=== PATIENT | male | born 1955 | race Caucasian/White ===

== ENCOUNTER 2018-10-09 07:38 | Outpatient (CLI) | payer BC ==
--- NOTE | 2018-10-09 08:58 | MRI ---
MRI Lumbar Spine WO Con History: M [age] lumbar radiculopathy Comparison: None. Findings: The aortic contour is nonaneurysmal. No retroperitoneal periaortic adenopathy. Lumbar spine musculature is normal. Conus medullaris terminates near the inferior endplate of L1. Levels are as follows: L1/L2: Severe facet arthropathy. Circumferential disc osteophyte complex. Mild bilateral neural hernando inal narrowing. Abnormal increased posterior vertebral fat. Spinal canal measures 8 mm. L2/L3: Moderate to severe facet arthropathy. Circumferential disc osteophyte complex. Abnormal increa sed posterior epidural fat. Spinal canal measures 5 mm. Mild bilateral neural foraminal narrowing. L3/L4: Mild degenerative disc space height loss. Circumferential disc osteophyte complex with central annular fissure. Moderate facet arthropathy. Moderate bilateral neural foraminal narrowing with abutment of the left exiting nerve root. Abnormal increased posterior epidural fat. Spinal canal lavinia ures 7 mm. L4/L5: Disc desiccation. Broad-based posterior disc osteophyte complex. Moderate to severe facet arth rosis. Moderate bilateral neural foraminal narrowing. Spinal canal measures 7 mm. L5/S1: Severe facet arthropathy with hypertrophic osteophytes. Moderate disc desiccation with broad-b ased posterior disc osteophyte complex. Large effusion within the left facet joint. Moderate left and mild right neural foraminal narrowing. Impression: Multilevel mild/moderate spondylosis as described with neural foraminal and spinal canal narrowing.
== END 2018-10-09 07:39 | disposition home or self-care (01) ==
LOC: TBSIIMAG 07:38
PROVIDERS: ATTEND Neurological Surgery
DX: M47.26 Other spondylosis with radiculopathy, lumbar region (principal); M48.061 Spinal stenosis, lumbar region without neurogenic claudication; M48.07 Spinal stenosis, lumbosacral region
CPT/HCPCS: 72148

== ENCOUNTER 2018-12-30 07:35 | Outpatient (CLI) | payer BC ==
[2018-12-30 14:12] LABS: Hemoglobin 14.5 g/dL (14.0-18.0); Mean Corpuscular Hemoglobin 30.8 pg (27.0-31.0); Mean Corpuscular Volume 93.2 fL (78.0-98.0); Mean Platelet Volume 7.9 fL (7.4-10.4); Platelet Count 222 thou/uL (130-400); RBC Distribution Width 13.8 % (11.5-14.5)
[2018-12-30 14:34] LABS: Anion Gap 10 mmol/L (10-20); BUN (Urea Nitrogen) 9 mg/dL (8.4-25.7); Calc. Creatinine Clearance 0 mL/min (70-130); Carbon Dioxide 27 mmol/L (23-31); Chloride 105 mmol/L (98-107); Estimated GFR-MDRD 51; Glucose 81 mg/dL (80-115); Potassium 3.8 mmol/L (3.5-5.1); Sodium 138 mmol/L (136-145)
== END 2018-12-30 07:36 | disposition home or self-care (01) ==
LOC: LABBT 07:35
PROVIDERS: ATTEND Neurological Surgery
DX: Z01.818 Encounter for other preprocedural examination (principal); M43.16 Spondylolisthesis, lumbar region
CPT/HCPCS: 80048; 85027; 93005; 93010

== ENCOUNTER 2019-01-04 07:00 | Day surgery (SDC) | payer BC ==
[2018-12-30 13:01] VITALS: BMI 27.8
[2019-01-04] MEDS ORDERED: Clindamycin/D5W 900 mg/50 ml Premix Bag ONE (08:02)
[2019-01-04] MEDS ORDERED: Levofloxacin 500 mg/D5W 100 ml Premix Bag ONE (08:02)
[2019-01-04] MEDS ORDERED: Sodium Chloride 0.9% 10 ML ONE (08:46)
[2019-01-04] MEDS ORDERED: Fentanyl 100 MCG/2 ML VIAL ONE ×2 (08:51→10:36)
[2019-01-04] MEDS ORDERED: Midazolam HCl 2 mg/2 ml Vial ONE (08:51)
[2019-01-04] MEDS ORDERED: HYDROmorphone 0.5 MG/0.5 ML SYRINGE ONE ×2 (10:54→11:18)
[2019-01-04] MEDS ORDERED: Morphine 2 MG/ML SYRINGE ONE ×2 (11:48→12:02)
[2019-01-04] MEDS ORDERED: Tamsulosin HCl 0.4 MG CAP ONE (11:57)
[2019-01-04] MEDS ORDERED: Acetaminophen/Codeine 30-300mg Tablet ONE (12:43)
--- NOTE | 2019-01-04 14:37 | OP ---
DATE OF PROCEDURE: 01/04/2019 MINE WIRER: Jasmyne Luciano PA-C PROCEDURES PERFORMED: Left L5-S1 laminectomy, facetectomy, and foraminotomy, interbody arthrodesis, posterolateral arthrodesis, pedicle screw instrumentation, demineralized bone matrix, local morselized autograft. DESCRIPTION OF PROCEDURE: The patient was brought to the operating room and intubated. He was rolled in a prone position on gel-filled chest rolls. An incision was made exposing L5-S1 bilaterally and the level was confirmed by x-ray. We performed left L5-S1 laminectomy, facetectomy, foraminotomy, and diskectomy, completely decompressed the left L5 nerve root. The disk was incised and debrided, but I did not attempt to place an intervertebral device given the small size of the disk space. Pedicle screws were then placed at left L5 and left S1 using lateral fluoroscopic guidance. The winifred was secured between the screws. Distraction was applied and the winifred was tightened to the screws using nuts. The wound was then extensively irrigated and MAC hemostasis was secured. A combination of demineralized bone matrix and local morselized autograft was laid over the right lamina and posterolateral surfaces for the purpose of arthrodesis. Vancomycin powder was applied and the wound was then closed in anatomic layers. Job ID: [id number]
== END 2019-01-04 14:00 | disposition home or self-care (01) ==
LOC: SDC 07:00
PROVIDERS: ATTEND Neurological Surgery
PROC: 01NB0ZZ Release Lumbar Nerve, Open Approach (ICD-10-PCS; principal; 2019-01-04)
PROC: 0SG00AJ Fusion of Lumbar Vertebral Joint with Interbody Fusion Device, Posterior Approach, Anterior Column, Open Approach (ICD-10-PCS; principal; 2019-01-04)
PROC: 0SG0071 Fusion of Lumbar Vertebral Joint with Autologous Tissue Substitute, Posterior Approach, Posterior Column, Open Approach (ICD-10-PCS; principal; 2019-01-04)
DX: M48.061 Spinal stenosis, lumbar region without neurogenic claudication (principal); M43.16 Spondylolisthesis, lumbar region; M54.16 Radiculopathy, lumbar region; I12.9 Hypertensive chronic kidney disease with stage 1 through stage 4 chronic kidney disease, or unspecified chronic kidney disease; N18.9 Chronic kidney disease, unspecified; E78.5 Hyperlipidemia, unspecified; J45.909 Unspecified asthma, uncomplicated; Z88.0 Allergy status to penicillin; Z88.1 Allergy status to other antibiotic agents; Z88.5 Allergy status to narcotic agent; Z91.048 Other nonmedicinal substance allergy status
CPT/HCPCS: 76000; C1713; C1768; J1170; J1956; J2250; J2270; J3010; J3370; J3490

== ENCOUNTER 2019-01-20 15:15 | Outpatient (CLI) | payer BC ==
--- NOTE | 2019-01-20 15:54 | RAD ---
LUMBAR SPINE SERIES TWO VIEWS: 01/20/19 HISTORY: Follow-up surgery. There is a moderate scoliotic change convexed to the left. The vertebral bodies are normal in height. Degenerative osteophytes and some disc narrowing are noted at the L2-3 and L3-4 level. Left unilater al pedicle screws at L5-S1 are present. Surgical harpreet are seen over the neck. There is disc narrow ing at L5-S1. IMPRESSION: Arthritic change with scoliosis and postop changes of the spine. POS: [facility]
== END 2019-01-20 15:16 | disposition home or self-care (01) ==
LOC: TBSIIMAG 15:15
PROVIDERS: ATTEND Neurological Surgery
DX: M43.16 Spondylolisthesis, lumbar region (principal); M41.9 Scoliosis, unspecified; M46.96 Unspecified inflammatory spondylopathy, lumbar region; Z98.890 Other specified postprocedural states
CPT/HCPCS: 72100

== ENCOUNTER 2019-02-24 15:11 | Outpatient (CLI) | payer BC ==
--- NOTE | 2019-02-24 15:34 | RAD ---
2 views of the lumbar spine: 02/24/2019 COMPARISON: 01/20/2019 HISTORY: Spondylolisthesis, prior surgery FINDINGS: Cutaneous harpreet noted on the prior examination have been removed. Stable left-sided pedic le screw at L5 and S1 with a vertically oriented interlocking winifred. Stable multilevel lower lumbar spine facet hypertrophy, left greater than right. Stable scoliosis present, apex to the left, centered at the upper lumbar region. No anterolisthesis or retrolisthesis is noted. At L2-3 and L3-4 there is mild disc space narrowing with anterior osteophyte formation. No acute osse ous abnormality noted. IMPRESSION: Stable postoperative and degenerative changes within the lumbar spine as described above.
== END 2019-02-24 15:12 | disposition home or self-care (01) ==
LOC: TBSIIMAG 15:11
PROVIDERS: ATTEND Neurological Surgery
DX: M43.16 Spondylolisthesis, lumbar region (principal); M47.816 Spondylosis without myelopathy or radiculopathy, lumbar region; Z98.890 Other specified postprocedural states
CPT/HCPCS: 72100

== ENCOUNTER 2019-06-01 13:54 | Outpatient (CLI) | payer BC ==
--- NOTE | 2019-06-01 14:59 | RAD ---
TWO VIEWS LUMBAR SPINE: HISTORY: Lumbar spondylolisthesis. Low back pain, extending down the left leg. Previous fusion at L5-S1. COMPARISON: 02/24/2019. FINDINGS: Stable leftward curvature of the lumbar spine. Stable unilateral left-sided transpedicular screw at L5 and S1. No perihardware lucency. Redemonstration of grade I anterolisthesis of L5 upon S1. Curr ently, there is 5.4 mm of anterolisthesis. Previously, there was 5.3 mm of anterolisthesis. Lumbar spine vertebral body heights are maintained and there is no fracture. Visualized sacrum and bony pelvis are intact. IMPRESSION: 1. Stable lumbar fusion. 2. Essentially stable grade I anterolisthesis of L5 upon S1. POS: [facility]
== END 2019-06-01 13:55 | disposition home or self-care (01) ==
LOC: TBSIIMAG 13:54
PROVIDERS: ATTEND Neurological Surgery
DX: M43.16 Spondylolisthesis, lumbar region (principal); M43.17 Spondylolisthesis, lumbosacral region; Z98.1 Arthrodesis status
CPT/HCPCS: 72100

== ENCOUNTER 2019-09-21 06:13 | Outpatient (CLI) | payer BC, OTHER ==
[2019-09-21 11:27] LABS: Mean Corpuscular HGB CONC 32.1 g/dL (32.0-36.0); Mean Corpuscular Hemoglobin 30.3 pg (27.0-31.0); Mean Corpuscular Volume 94.3 fL (78.0-98.0); Mean Platelet Volume 8.4 fL (7.4-10.4); Platelet Count 250 thou/uL (130-400); RBC Distribution Width 13.5 % (11.5-14.5); Red Blood Cell (RBC) Count 4.96 mill/uL (4.70-6.10); White Blood Cell (WBC) Count 7.3 thou/uL (4.8-10.8)
[2019-09-21 11:49] LABS: INR-International Normal Ratio 0.9; Prothrombin Time 11.6 sec (12.0-14.7)
--- NOTE | 2019-09-21 12:00 | RAD ---
CHEST 2 VIEWS: HISTORY: Preoperative evaluation. COMPARISON: 09/02/2017. FINDINGS: Heart size is within normal limits. The lungs are clear. No confluent pneumonia, overt edema, or pl eural effusion. Stable-appearing posttraumatic changes in the left distal clavicle. IMPRESSION: No acute intrathoracic disease. POS: [facility]
[2019-09-21 12:03] LABS: Bacteria/HPF None Seen HPF (None Seen); Bilirubin Negative (Negative); Blood, Urine Negative (Negative); Clarity Clear (Clear); Glucose, Urine (Dipstick) Normal (Negative); Leukocyte Negative Leu/uL (Negative); Nitrite Negative (Negative); Protein, Urine (Dipstick) Negative (Neg-Trace); RBC/HPF 0-3 HPF (0-3); Squamous Epithelial 0-3 HPF (0-3); Urobilinogen Normal mg/dL (Less than 2); WBC/HPF 0-3 HPF (0-3)
[2019-09-21 12:47] LABS: Anion Gap 14 mmol/L (10-20); BUN (Urea Nitrogen) 11 mg/dL (8.4-25.7); Calc. Creatinine Clearance 0 mL/min (70-130); Calcium 9.2 mg/dL (7.8-10.44); Carbon Dioxide 27 mmol/L (23-31); Chloride 106 mmol/L (98-107); Estimated GFR-MDRD 52; Glucose 87 mg/dL (80-115); Potassium 3.9 mmol/L (3.5-5.1); Sodium 143 mmol/L (136-145)
[2019-09-22 18:03] LABS: SARS-CoV-2 MS2 Positive; SARS-CoV-2 N Gene Negative; SARS-CoV-2 S Gene Negative; SARS-CoV-2 orf1ab Negative
== END 2019-09-21 06:14 | disposition home or self-care (01) ==
LOC: LABBT 06:13
PROVIDERS: ATTEND Urology
DX: Z01.818 Encounter for other preprocedural examination (principal); Z11.59 Encounter for screening for other viral diseases; N40.1 Benign prostatic hyperplasia with lower urinary tract symptoms; N52.8 Other male erectile dysfunction; R30.0 Dysuria; I25.10 Atherosclerotic heart disease of native coronary artery without angina pectoris; N18.3 Chronic kidney disease, stage 3 (moderate)
CPT/HCPCS: 71046; 80048; 81001; 85027; 85610; 85730; 87086; 87635; U0003

== ENCOUNTER 2019-09-24 06:25 | Day surgery (SDC) | payer BC ==
[2019-09-20 11:44] VITALS: BMI 27.0
[2019-09-24] MEDS ORDERED: Levofloxacin 500 mg/D5W 100 ml Premix Bag ONE (07:01)
[2019-09-24] MEDS ORDERED: Famotidine/PF 20 mg/2ml Vial ONE (07:32)
[2019-09-24] MEDS ORDERED: Midazolam HCl 2 mg/2 ml Vial ONE (07:32)
[2019-09-24] MEDS ORDERED: Fentanyl 100 MCG/2 ML VIAL ONE (07:32)
[2019-09-24] MEDS ORDERED: Ondansetron PF 4 MG/2 ML Vial ONE ×2 (09:09→09:51)
[2019-09-24] MEDS ORDERED: Lidocaine 1% PF 5 ML VIAL ONE (09:51)
[2019-09-24] MEDS ORDERED: B & O ONE (10:03)
[2019-09-24] MEDS ORDERED: Oxybutynin 5 MG TAB ONE (10:31)
[2019-09-24] MEDS ORDERED: Phenazopyridine HCl 97.5 MG TABLET ONE (10:31)
[2019-09-24] MEDS ORDERED: Morphine 2 MG/ML SYRINGE ONE (12:21)
--- NOTE | 2019-09-24 13:53 | OP ---
DATE OF PROCEDURE: 09/24/2019 SERVICE: Urology. PREOPERATIVE DIAGNOSIS: Benign prostatic hyperplasia with urinary obstruction. POSTOPERATIVE DIAGNOSIS: Benign prostatic hyperplasia with urinary obstruction. PROCEDURE PERFORMED: UroLift with 6 implants. INDICATIONS FOR PROCEDURE: Mr. Looney is a 64-year-old white male with BPH and urinary obstruction. He is currently not completely managed on Flomax. He was suitable for UroLift on workup, and after discussion of risks and benefits, he wished to proceed forward. DESCRIPTION OF PROCEDURE: After identification of armband and verification of consent, the patient was brought back to the operating room, where he underwent total intravenous anesthesia. He was then placed in dorsal lithotomy position and prepped and draped in a sterile fashion. After appropriate time-out, a lubricated 21-Belarusian rigid cystoscope with the UroLift obturator was introduced per urethra into the bladder. The visual obturator then switched out for the UroLift implant device. The first implant was placed at the patient's left bladder neck, withdrawn enough to be away from the bladder neck. The lateral tissue was compressed and the hands dropped down for anterior and lateral compression. The safety was released and the blue trigger was fired to deploy the needle. The mora trigger was then squeezed for setting of tension and the UroLift device advanced forward until the white line was in the keyhole, at which point, the urethral end piece was deployed using the back trigger. This was then repeated again on the right side toward the bladder neck. Neither implant was too close to the bladder neck. The apexes were then also implanted on both sides. This did result in a nice anterior channel; however, he still had some lateral lobes that were bulging out from underneath obstructing his channel somewhat. I figured one additional implant would probably address these on each side, so 2 more implants were placed on the right and left approximately midway through on these lateral bulges, which resulted in extremely wide open urethral channel. I felt this would be satisfactory for the patient's voiding. The UroLift device was removed and an 18-Belarusian Griffin catheter was placed through the patient's penis into the bladder. 10 mL sterile water placed into the balloon. He was then taken out of positioning, awakened, taken back to Day Stay for recovery in stable condition. COMPLICATIONS: None. ESTIMATED BLOOD LOSS: Minimal. RETAINED TUBE AND DRAINS: 18-Belarusian Griffin catheter to gravity drainage. SPECIMENS: None. IMPLANTS USED: 6. DISPOSITION: The patient will undergo a void trial while here and then be discharged home. He will then have his care handled on an outpatient basis. Job ID: [id number]
[2019-09-24] MEDS ORDERED: diphenhydrAMINE 25 MG CAP ONE (14:15)
== END 2019-09-24 15:10 | disposition home or self-care (01) ==
LOC: SDC 06:25
PROVIDERS: ATTEND Urology
PROC: 0T7D8DZ Dilation of Urethra with Intraluminal Device, Via Natural or Artificial Opening Endoscopic (ICD-10-PCS; principal; 2019-09-24)
DX: N40.1 Benign prostatic hyperplasia with lower urinary tract symptoms (principal); N13.8 Other obstructive and reflux uropathy; R30.0 Dysuria; N52.8 Other male erectile dysfunction; I12.9 Hypertensive chronic kidney disease with stage 1 through stage 4 chronic kidney disease, or unspecified chronic kidney disease; N18.3 Chronic kidney disease, stage 3 (moderate); E78.5 Hyperlipidemia, unspecified; I25.10 Atherosclerotic heart disease of native coronary artery without angina pectoris; J45.909 Unspecified asthma, uncomplicated; F17.290 Nicotine dependence, other tobacco product, uncomplicated; Z79.899 Other long term (current) drug therapy; Z88.1 Allergy status to other antibiotic agents; Z88.0 Allergy status to penicillin; Z88.5 Allergy status to narcotic agent; Z91.048 Other nonmedicinal substance allergy status; Z95.5 Presence of coronary angioplasty implant and graft
CPT/HCPCS: C1889; J1956; J2001; J2250; J2270; J2405; J3010; Q0163; S0028

== ENCOUNTER 2019-09-29 09:20 | Outpatient (CLI) | payer BC ==
--- NOTE | 2019-09-29 10:55 | RAD ---
Exam: 1 view abdomen HISTORY: Benign nonnodular prostatic hyperplasia COMPARISON: None FINDINGS: Unilateral left-sided transpedicular screw at L5 and S1. No osseous abnormalities Nonspecific bowel gas pattern Brachytherapy seeds are noted in the prostate bed. Bilateral phleboliths are identified IMPRESSION: AP supine paying teller radiograph was performed to undergo a cystogram. However, cystogram was c anceled. Cystogram was ordered by mistake and therefore the current exam should be credited.
== END 2019-09-29 09:21 | disposition home or self-care (01) ==
LOC: RAD 09:20
PROVIDERS: ATTEND Urology
DX: N40.1 Benign prostatic hyperplasia with lower urinary tract symptoms (principal)
CPT/HCPCS: 74018

== ENCOUNTER 2020-02-01 08:57 | Day surgery (SDC) | payer BC ==
[2020-01-31 16:21] VITALS: BMI 26.6
[~2020-02-01 08:57] MED LIST: Bupivacaine PF 0.75% SDV 10 ML ONE; EPINEPHrine 0.3 MG in Ophthalmic Irrigation Solution 500 ML IRR SCH; Lidocaine 1% PF 5 ML VIAL ONE; Lidocaine 4% PF 5 ML AMP ONE; Ondansetron PF 4 MG/2 ML Vial ONE; PROPOFOL 200 MG/20 ML VIAL ONE; Triamcinolone 40 MG/ML VIAL ONE
[2020-02-01] MEDS ORDERED: Cyclopentolate 1% Opth Drop 2 ML BOT ONE (09:27)
[2020-02-01] MEDS ORDERED: Phenylephrine 2.5% Ophth Soln 5 ML BOT ONE (09:27)
[2020-02-01] MEDS ORDERED: Midazolam HCl 2 mg/2 ml Vial ONE (11:23)
[2020-02-01] MEDS ORDERED: Fentanyl 100 MCG/2 ML VIAL ONE (11:23)
--- NOTE | 2020-02-01 18:25 | OP ---
DATE OF PROCEDURE: 02/01/2020 PRINCIPAL PREOPERATIVE DIAGNOSIS: Macula involving rhegmatogenous retinal detachment, left eye. POSTOPERATIVE DIAGNOSIS: Macula involving rhegmatogenous retinal detachment, left eye. PROCEDURES PERFORMED: 1. 25-gauge pars plana vitrectomy, left eye. 2. Rhegmatogenous retinal detachment repair, left eye. 3. Endolaser, left eye. 4. 15% C3F8 fill, left eye. ESTIMATED BLOOD LOSS: None. SPECIMENS REMOVED: None. COMPLICATIONS: None. ANESTHESIA: MAC with sub-Tenon block. SUMMARY OF OPERATION: The patient was identified in the preoperative holding area. The correct eye being the left eye was marked for surgery. The patient was taken to the operating room, where MAC anesthesia was induced. The left eye was prepped and draped in usual sterile ophthalmic fashion for surgery. A wire-clip lid speculum was placed. An inferonasal conjunctival peritomy was fashioned with Taiwo scissors for administration of sub-Tenon block. The block consisted of 1:1 ratio of 4% lidocaine and 0.75% Marcaine. Total of 5 mL was administered. A standard 25-gauge pars plana vitrectomy platform was fashioned with trocars placed approximately 3.5 mm from the limbus. The infusion was noted to be within the vitreous cavity prior to being turned on to an infusion pressure of 30 mmHg. The light pipe and microvitrector were introduced in the eye under visualization of the BIOM viewing system. A macula involving, fovea on rhegmatogenous retinal detachment was noted from approximately 3 o'clock to 9 o'clock with 6 defects noted spanning from approximately 5 o'clock to 8:30. A careful core and peripheral shave vitrectomy were performed with the assistance of scleral depression, taking great care to relieve all vitreous traction off the aforementioned defects. Following vitrectomy, the endo cautery was used to abdi all the defects as well as to create an inferonasal drainage retinotomy site. This site was opened with a flute needle, which was subsequently drained via an air-fluid exchange. Following air-fluid exchange, the endolaser was used to provide barricade around the retinotomy site as well as around all the aforementioned defect. Additionally, a barricade was placed spanning from 3 to 9 o'clock, sparing the horizontal meridians. Following endolaser, the flute needle was reintroduced in the eye to remove the residual subretinal fluid. An air-gas exchange was performed with 15% C3F8. The cannulas were sequentially removed, and the supranasal and inferotemporal sclerotomies were sutured with 8-0 Vicryl suture. Following suturing, all sclerotomies were noted to be gas tight. The subconjunctival Kenalog was injected. The wire-clip lid speculum was removed followed by application of TobraDex ophthalmic ointment and a light patch and shield. The patient tolerated the procedure well. The patient was taken to the postop procedure area in good condition. Job ID: [id number]
== END 2020-02-01 13:55 | disposition home or self-care (01) ==
LOC: SDC 08:57
PROVIDERS: ATTEND Ophthalmology Retina Specialist
PROC: 08QF3ZZ Repair Left Retina, Percutaneous Approach (ICD-10-PCS; principal; 2020-02-01)
PROC: 08T53ZZ Resection of Left Vitreous, Percutaneous Approach (ICD-10-PCS; principal; 2020-02-01)
DX: H33.022 Retinal detachment with multiple breaks, left eye (principal); I25.2 Old myocardial infarction; K21.9 Gastro-esophageal reflux disease without esophagitis; J45.909 Unspecified asthma, uncomplicated; F17.220 Nicotine dependence, chewing tobacco, uncomplicated; Z79.52 Long term (current) use of systemic steroids; Z79.899 Other long term (current) drug therapy; Z88.0 Allergy status to penicillin; Z88.1 Allergy status to other antibiotic agents; Z88.5 Allergy status to narcotic agent; Z91.048 Other nonmedicinal substance allergy status; Z95.5 Presence of coronary angioplasty implant and graft
CPT/HCPCS: 67025; J0171; J2001; J2250; J2405; J2704; J3010; J3301; J3490

== ENCOUNTER 2020-02-22 10:16 | Day surgery (SDC) | payer BC ==
[2020-02-21 10:50] VITALS: BMI 26.6
[~2020-02-22 10:16] MED LIST changes: -Bupivacaine PF 0.75% SDV 10 ML ONE; -Lidocaine 1% PF 5 ML VIAL ONE; -Lidocaine 4% PF 5 ML AMP ONE; -Ondansetron PF 4 MG/2 ML Vial ONE; -PROPOFOL 200 MG/20 ML VIAL ONE; -Triamcinolone 40 MG/ML VIAL ONE
[2020-02-22] MEDS ORDERED: PROPOFOL 200 MG/20 ML VIAL ONE (10:24)
[2020-02-22] MEDS ORDERED: Metoclopramide HCl 10 MG/2 ML VIAL ONE (10:24)
[2020-02-22] MEDS ORDERED: Bupivacaine PF 0.75% SDV 10 ML ONE (10:24)
[2020-02-22] MEDS ORDERED: Glycopyrrolate 0.2 MG/ML 5 ML SYRINGE ONE (10:24)
[2020-02-22] MEDS ORDERED: PHENYLEPHRINE-NS 100 MCG/ML 10 ML SYRINGE ONE (10:24)
[2020-02-22] MEDS ORDERED: Maxitrol 0.1% Opth Oint 3.5 GM TUBE ONE (10:24)
[2020-02-22] MEDS ORDERED: Lidocaine 4% PF 5 ML AMP ONE (10:24)
[2020-02-22] MEDS ORDERED: Triamcinolone 40 MG/ML VIAL ONE (10:24)
[2020-02-22] MEDS ORDERED: Lidocaine 1% PF 5 ML VIAL ONE (10:24)
[2020-02-22] MEDS ORDERED: Ondansetron PF 4 MG/2 ML Vial ONE (10:24)
[2020-02-22] MEDS ORDERED: Cyclopentolate 1% Opth Drop 2 ML BOT ONE (11:24)
[2020-02-22] MEDS ORDERED: Phenylephrine 2.5% Ophth Soln 5 ML BOT ONE (11:25)
[2020-02-22] MEDS ORDERED: Fentanyl 100 MCG/2 ML VIAL ONE ×3 (11:35→16:43)
[2020-02-22] MEDS ORDERED: Famotidine/PF 20 mg/2ml Vial ONE (12:34)
[2020-02-22] MEDS ORDERED: Phenylephrine 10 MG/ML VIAL ONE (12:37)
[2020-02-22] MEDS ORDERED: HYDROmorphone 2 MG/ML VIAL SLOW IVP PRN (15:34)
[2020-02-22] MEDS ORDERED: Promethazine HCl 25 MG/ML VIAL SLOW IVP PRN (15:34)
[2020-02-22] MEDS ORDERED: Promethazine HCl 25 MG/ML VIAL IM PRN (15:34)
[2020-02-22] MEDS ORDERED: Ondansetron HCl/PF 4 MG/2 ML Vial IVP PRN (15:34)
[2020-02-22] MEDS ORDERED: Meperidine HCl/PF 25 MG/ML VIAL ONE (15:39)
--- NOTE | 2020-02-22 20:53 | OP ---
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 PROCEDURE PERFORMED: 1. A 25-gauge pars plana vitrectomy, left eye. 2. Scleral buckle 42 band, left eye. 3. Proliferative vitreal retinopathy removal, left eye. 4. Silicone oil fill, left eye. 5. Endolaser left eye. ESTIMATED BLOOD LOSS: None. SPECIMENS REMOVED: None. COMPLICATIONS: None. ANESTHESIA: LMA with subtenon's block. SUMMARY OF THE OPERATION: The patient was identified in the preoperative holding area. The correct eye being the left eye was marked for surgery. The patient was taken to the operating room, where general anesthesia was induced. The left eye was prepped and draped in usual sterile ophthalmic fashion for surgery. A wire lid speculum was placed. A 360 degree conjunctival peritomy was fashioned with Taiwo scissors. Dissection was performed posteriorly in the oblique quadrants to allow for improved visualization. cautery was used to maintain hemostasis as needed. All the four rectus muscles were isolated with 2-0 suture and tagged. Four 5-0 Mersilene mattress sutures were placed in the oblique quadrants with the 2 ends of the mattress suture 8 mm back from the rectus muscle. A 42 band was brought onto the field and was passed under the pre-placed sutures and under the rectus muscles and adjoined supranasally. Attention was subsequently turned to the vitrectomy. A standard 25-gauge pars plana vitrectomy platform was fashioned with trocars placed approximately 3.5 mm from the limbus. The infusion was noted to be within the vitreous cavity prior to being turned on to infusion pressure of 30 mmHg. An air-fluid exchange was performed, which allowed for complete filling of the eye with BSS. At this point, a macula involving fovea on combined rhegmatogenous/tractional retinal detachment was noted from approximately 3'o clock to 7'o clock. A star fold was noted inferotemporally. Significant fibrosis was noted within this area with multiple defects as well as a large defect inferiorly. The scleral buckle was noted to be at adequate height. Using the MAC scrub forceps, the proliferative vitreoretinopathy was gently dissected and peeled. The decision was made to perform a partial inferotemporal retinectomy. The Endocautery was used to cauterize the area inferotemporally followed by retinectomy with a Micro vitrector. An inferotemporal retinotomy was created with the Endocautery followed by opening with a flute needle. An air-fluid exchange was performed, which allowed for complete flattening of the retina. Endolaser was used to provide barricade around the retinotomy site as well as around the defect and a 360 degree cerclage was placed along the periphery. Following Endolaser, the flute needle was reintroduced in the eye to remove the residual subretinal fluid. Subsequently, a complete silicone oil fill was achieved. The cannulas were sequentially removed and were sutured with 8-0 Vicryl suture. The conjunctiva was subsequently reapproximated with interrupted 8-0 Vicryl sutures. Subconjunctival Kenalog was injected. The wire lid speculum was removed followed by application of TobraDex ophthalmic ointment and a light patch and shield. The patient tolerated the procedure well and was taken to outpatient recovery in good condition. Job ID: [id number]
== END 2020-02-22 18:02 | disposition home or self-care (01) ==
LOC: SDC 10:16
PROVIDERS: ATTEND Ophthalmology Retina Specialist
PROC: 08U13JZ Supplement of Left Eye with Synthetic Substitute, Percutaneous Approach (ICD-10-PCS; principal; 2020-02-22)
PROC: 08N53ZZ Release Left Vitreous, Percutaneous Approach (ICD-10-PCS; principal; 2020-02-22)
DX: H33.42 Traction detachment of retina, left eye (principal); K21.9 Gastro-esophageal reflux disease without esophagitis; I25.2 Old myocardial infarction; F17.220 Nicotine dependence, chewing tobacco, uncomplicated; Z79.899 Other long term (current) drug therapy; Z88.0 Allergy status to penicillin; Z88.1 Allergy status to other antibiotic agents; Z88.5 Allergy status to narcotic agent; Z91.048 Other nonmedicinal substance allergy status
CPT/HCPCS: C1814; J0171; J2001; J2175; J2370; J2405; J2704; J2765; J3010; J3301; J3490; S0028

== ENCOUNTER 2020-05-23 09:20 | Day surgery (SDC) | payer BC ==
[2020-05-22 12:14] VITALS: BMI 27.1
[~2020-05-23 09:20] MED LIST changes: +Fentanyl 100 MCG/2 ML VIAL ONE; +Midazolam HCl 2 mg/2 ml Vial ONE; +PROPOFOL 20 ML ONE
[2020-05-23] MEDS ORDERED: Cyclopentolate 1% Ophth Drops 15 ML BOT ONE (09:44)
[2020-05-23] MEDS ORDERED: Phenylephrine 2.5% Ophth Soln 5 ML BOT ONE (09:44)
[2020-05-23] MEDS ORDERED: Lidocaine 4% PF 5 ML AMP ONE (10:45)
[2020-05-23] MEDS ORDERED: Maxitrol 0.1% Opth Oint 3.5 GM TUBE ONE (10:45)
[2020-05-23] MEDS ORDERED: Triamcinolone 40 MG/ML VIAL ONE (10:45)
[2020-05-23] MEDS ORDERED: Bupivacaine PF 0.75% SDV 10 ML ONE (10:45)
[2020-05-23] MEDS ORDERED: PROPOFOL 200 MG/20 ML VIAL ONE (10:45)
--- NOTE | 2020-05-23 13:59 | OP ---
DATE OF PROCEDURE: 05/23/2020 PRINCIPAL PREOPERATIVE DIAGNOSIS: Silicone oil, status post retinal detachment repair, left eye. POSTOPERATIVE DIAGNOSIS: Silicone oil, status post retinal detachment repair, left eye. PROCEDURES PERFORMED: 1. 25-gauge pars plana vitrectomy, left eye. 2. Focal laser superiorly, left eye. ESTIMATED BLOOD LOSS: None. SPECIMENS REMOVED: None. COMPLICATIONS: None. ANESTHESIA: MAC with sub-Tenon's block. DESCRIPTION OF PROCEDURE: The patient was identified in the preoperative holding area, where the correct eye being the left eye was marked for surgery. The patient was taken to the operating room, where MAC anesthesia was induced. The left eye was prepped and draped in the usual sterile ophthalmic fashion for surgery. A wire-clip lid speculum was placed. An inferonasal conjunctival peritomy was fashioned with a Taiwo scissors for administration of sub-Tenon's block. The block consisted of 1:1 ratio of 4% lidocaine and 0.75% Marcaine. A total of 5 mL was administered. A standard 25-gauge pars plana vitrectomy platform was fashioned with trocars placed approximately 3.5 mm from the limbus. The infusion was noted to be within the vitreous cavity prior to being turned on to an infusion pressure of 30 mmHg. The light pipe and microvitrector were introduced in the eye under visualization of the BIOM viewing system. The retina was noted to be flat and attached. The silicone oil extrusion device was inserted in the eye to remove the majority of silicone oil. Subsequently, the flute needle was reintroduced in the eye to perform three sequential air-fluid exchanges, which allowed for removal of any residual silicone oil. A small area of focal endolaser was used superiorly to add additional barricade as well as along the temporal periphery around 9 o'clock to assist with the preexisting laser. The cannulas were sequentially removed and all sclerotomies were sutured with 8-0 Vicryl suture including the inferonasal conjunctival peritomy. Following suturing, all sclerotomies were noted to be watertight. The subconjunctival Kenalog was injected. The wire-clip lid speculum was removed followed by application of TobraDex ophthalmic ointment and a light patch and shield. The patient tolerated the procedure well, was taken to the outpatient recovery area in good condition. Job ID: [id number]
== END 2020-05-23 12:21 | disposition home or self-care (01) ==
LOC: SDC 09:20
PROVIDERS: ATTEND Ophthalmology Retina Specialist
PROC: 08953ZZ Drainage of Left Vitreous, Percutaneous Approach (ICD-10-PCS; principal; 2020-05-23)
PROC: 08T53ZZ Resection of Left Vitreous, Percutaneous Approach (ICD-10-PCS; principal; 2020-05-23)
PROC: 08QF3ZZ Repair Left Retina, Percutaneous Approach (ICD-10-PCS; principal; 2020-05-23)
DX: H43.392 Other vitreous opacities, left eye (principal); I25.2 Old myocardial infarction; K21.9 Gastro-esophageal reflux disease without esophagitis; F17.220 Nicotine dependence, chewing tobacco, uncomplicated; Z95.5 Presence of coronary angioplasty implant and graft; Z79.899 Other long term (current) drug therapy; Z88.0 Allergy status to penicillin; Z88.1 Allergy status to other antibiotic agents; Z88.5 Allergy status to narcotic agent; Z91.048 Other nonmedicinal substance allergy status
CPT/HCPCS: J0171; J2250; J2704; J3010; J3301; J3490

== ENCOUNTER 2020-08-31 07:34 | Outpatient (CLI) | payer BC ==
[2020-05-19 23:20] LABS: SARS-CoV-2 PCR by NAA Not Detected (NotDetected)
[2020-08-31 14:26] LABS: SARS-CoV-2 PCR by NAA Not Detected (NotDetected)
== END 2020-08-31 07:35 | disposition home or self-care (01) ==
LOC: LABBT 07:34
PROVIDERS: ATTEND Ophthalmology Retina Specialist
DX: Z01.812 Encounter for preprocedural laboratory examination (principal); H33.42 Traction detachment of retina, left eye; Z20.822 Contact with and (suspected) exposure to COVID-19
CPT/HCPCS: 87635; U0003; U0005

== ENCOUNTER 2020-09-05 10:42 | Day surgery (SDC) | payer BC ==
[2020-09-04 14:36] VITALS: BMI 27.1
[~2020-09-05 10:42] MED LIST changes: -PROPOFOL 20 ML ONE
[2020-09-05] MEDS ORDERED: Cyclopentolate 1% Opth Drop 2 ML BOT ONE (11:58)
[2020-09-05] MEDS ORDERED: Phenylephrine 2.5% Ophth Soln 5 ML BOT ONE (11:58)
[2020-09-05] MEDS ORDERED: PROPOFOL 200 MG/20 ML VIAL ONE (12:43)
[2020-09-05] MEDS ORDERED: Lidocaine 4% PF 5 ML AMP ONE (12:43)
[2020-09-05] MEDS ORDERED: Triamcinolone 40 MG/ML VIAL ONE (12:43)
[2020-09-05] MEDS ORDERED: Maxitrol 0.1% Opth Oint 3.5 GM TUBE ONE (12:43)
[2020-09-05] MEDS ORDERED: Bupivacaine PF 0.75% SDV 10 ML ONE (12:43)
[2020-09-05] MEDS ORDERED: Fentanyl 100 MCG/2 ML VIAL ONE (13:22)
== END 2020-09-05 14:35 | disposition home or self-care (01) ==
LOC: SDC 10:42
PROVIDERS: ATTEND Ophthalmology Retina Specialist
PROC: 08T53ZZ Resection of Left Vitreous, Percutaneous Approach (ICD-10-PCS; principal; 2020-09-05)
DX: H33.42 Traction detachment of retina, left eye (principal); Z79.899 Other long term (current) drug therapy; Z88.0 Allergy status to penicillin; Z88.1 Allergy status to other antibiotic agents; Z88.5 Allergy status to narcotic agent; Z91.048 Other nonmedicinal substance allergy status
CPT/HCPCS: C1814; J0171; J2250; J2704; J3010; J3301; J3490

== ENCOUNTER 2021-01-19 07:34 | Outpatient (CLI) | payer BC ==
[2021-01-19 17:18] LABS: SARS-CoV-2 PCR by NAA Not Detected (NotDetected)
== END 2021-01-19 07:35 | disposition home or self-care (01) ==
LOC: LABBT 07:34
PROVIDERS: ATTEND Ophthalmology Retina Specialist
DX: Z01.812 Encounter for preprocedural laboratory examination (principal); Z20.822 Contact with and (suspected) exposure to COVID-19
CPT/HCPCS: U0003; U0005

== ENCOUNTER 2021-01-23 08:49 | Day surgery (SDC) | payer BC ==
[2021-01-22 12:50] VITALS: BMI 27.1
[2021-01-23] MEDS ORDERED: Cyclopentolate 1% Opth Drop 2 ML BOT ONE (09:45)
[2021-01-23] MEDS ORDERED: Phenylephrine 2.5% Ophth Soln 5 ML BOT ONE (09:46)
[2021-01-23] MEDS ORDERED: Fentanyl 100 MCG/2 ML VIAL ONE ×3 (12:08→12:10)
== END 2021-01-23 12:45 | disposition home or self-care (01) ==
LOC: SDC 08:49
PROVIDERS: ATTEND Ophthalmology Retina Specialist
PROC: 08T53ZZ Resection of Left Vitreous, Percutaneous Approach (ICD-10-PCS; principal; 2021-01-23)
DX: H43.392 Other vitreous opacities, left eye (principal); I25.2 Old myocardial infarction; K21.9 Gastro-esophageal reflux disease without esophagitis; F17.220 Nicotine dependence, chewing tobacco, uncomplicated; Z88.0 Allergy status to penicillin; Z88.1 Allergy status to other antibiotic agents; Z88.5 Allergy status to narcotic agent; Z91.048 Other nonmedicinal substance allergy status; Z79.899 Other long term (current) drug therapy; Z95.5 Presence of coronary angioplasty implant and graft; Z98.890 Other specified postprocedural states
CPT/HCPCS: J0171; J2250; J3010

== ENCOUNTER 2022-08-13 07:26 | Outpatient (CLI) | payer MEDICARE, BC | END 2022-08-13 07:27 | disposition home or self-care (01) | LOC: BICULT 07:26 | PROVIDERS: ATTEND Internal Medicine Nephrology | DX: N18.30 Chronic kidney disease, stage 3 unspecified (principal) | CPT/HCPCS: 76770 ==

== ENCOUNTER 2023-09-16 12:03 | Outpatient (CLI) | payer MEDICARE ==
[2023-09-16 13:52] LABS: Hematocrit 46.1 % (38.8-50.0); Hemoglobin 15.7 g/dL (13.5-17.5); Mean Corpuscular HGB CONC 34.1 g/dL (32.0-36.0); Mean Corpuscular Hemoglobin 30.5 pg (27.0-33.0); Mean Corpuscular Volume 89.7 fL (81.2-95.1); Mean Platelet Volume 10.2 fL (7.4-10.4); Platelet Count 242 10x3/uL (150-450); RBC Distribution Width 13.5 % (11.5-14.5); Red Blood Cell (RBC) Count 5.14 10x6/uL (4.32-5.72); White Blood Cell (WBC) Count 6.5 10x3/uL (3.5-10.5)
[2023-09-16 13:59] LABS: Anion Gap 13 mmol/L (10-20); BUN (Urea Nitrogen) 13 mg/dL (8.4-25.7); Calc. Creatinine Clearance 0 mL/min (70-130); Calcium 9.1 mg/dL (7.8-10.44); Carbon Dioxide 24 mmol/L (23-31); Chloride 105 mmol/L (98-107); Estimated GFR 52; Glucose 116 mg/dL (80-115); Potassium 4.8 mmol/L (3.5-5.1); Sodium 137 mmol/L (136-145)
== END 2023-09-16 12:04 | disposition home or self-care (01) ==
LOC: LABBT 12:03
PROVIDERS: ATTEND Specialist
DX: Z01.818 Encounter for other preprocedural examination (principal); J32.0 Chronic maxillary sinusitis; J32.1 Chronic frontal sinusitis; J32.2 Chronic ethmoidal sinusitis; J32.3 Chronic sphenoidal sinusitis
CPT/HCPCS: 80048; 85027; 93005; 93010

== ENCOUNTER 2023-09-18 09:55 | Day surgery (SDC) | payer MEDICARE ==
[2023-09-16 12:56] VITALS: BMI 27.8
[2023-09-18] MEDS ORDERED: Oxymetazoline HCl 0.05% (30 ML BOT) ONE ×2 (10:35→11:04)
[2023-09-18] MEDS ORDERED: EPINEPHrine 1 MG/ML VIAL ONE ×2 (11:04→12:10)
[2023-09-18] MEDS ORDERED: Lidocaine 1% (PF) 30 ML VIAL ONE (11:04)
[2023-09-18] MEDS ORDERED: PROPOFOL 20 ML ONE ×2 (11:21→11:22)
[2023-09-18] MEDS ORDERED: Lidocaine 1% PF 5 ML VIAL ONE (11:21)
[2023-09-18] MEDS ORDERED: fentaNYL PF 100 MCG/2 ML SYRINGE ONE (11:21)
[2023-09-18] MEDS ORDERED: Rocuronium Bromide 10 MG/ML (10ML VIAL) ONE (11:21)
[2023-09-18] MEDS ORDERED: Dexamethasone 20 MG/5 ML VIAL ONE (12:02)
[2023-09-18] MEDS ORDERED: PHENYLEPHRINE-NS 100 MCG/ML 10 ML SYRINGE ONE (12:07)
[2023-09-18] MEDS ORDERED: Triamcinolone 40 MG/ML VIAL ONE (12:20)
[2023-09-18] MEDS ORDERED: Ondansetron PF 4 MG/2 ML Vial ONE (12:32)
[2023-09-18] MEDS ORDERED: methylPREDNISolone Acetate 40 mg/ml Vial ONE (12:32)
[2023-09-18] MEDS ORDERED: SUGAMMADEX SODIUM 200 MG/2 ML VIAL ONE (12:34)
[2023-09-18] MEDS ORDERED: fentaNYL 50 mcg/mL 1 mL Vial ONE ×3 (13:01→13:35)
== END 2023-09-18 16:09 | disposition home or self-care (01) ==
LOC: SDC 09:55
PROVIDERS: ATTEND Specialist
PROC: 09TV8ZZ Resection of Left Ethmoid Sinus, Via Natural or Artificial Opening Endoscopic (ICD-10-PCS; principal; 2023-09-18)
PROC: 09TW8ZZ Resection of Right Sphenoid Sinus, Via Natural or Artificial Opening Endoscopic (ICD-10-PCS; 2023-09-18)
PROC: 09TX8ZZ Resection of Left Sphenoid Sinus, Via Natural or Artificial Opening Endoscopic (ICD-10-PCS; 2023-09-18)
PROC: 09TQ8ZZ Resection of Right Maxillary Sinus, Via Natural or Artificial Opening Endoscopic (ICD-10-PCS; 2023-09-18)
PROC: 09TR8ZZ Resection of Left Maxillary Sinus, Via Natural or Artificial Opening Endoscopic (ICD-10-PCS; 2023-09-18)
PROC: 09TS8ZZ Resection of Right Frontal Sinus, Via Natural or Artificial Opening Endoscopic (ICD-10-PCS; 2023-09-18)
PROC: 09TT8ZZ Resection of Left Frontal Sinus, Via Natural or Artificial Opening Endoscopic (ICD-10-PCS; 2023-09-18)
PROC: 09TU8ZZ Resection of Right Ethmoid Sinus, Via Natural or Artificial Opening Endoscopic (ICD-10-PCS; 2023-09-18)
PROC: 09BK4ZZ Excision of Nasal Mucosa and Soft Tissue, Percutaneous Endoscopic Approach (ICD-10-PCS; 2023-09-18)
DX: J32.4 Chronic pansinusitis (principal); J30.89 Other allergic rhinitis; J33.9 Nasal polyp, unspecified; L90.5 Scar conditions and fibrosis of skin; H91.90 Unspecified hearing loss, unspecified ear; I10 Essential (primary) hypertension; J45.909 Unspecified asthma, uncomplicated; K21.9 Gastro-esophageal reflux disease without esophagitis; Z88.0 Allergy status to penicillin; Z88.1 Allergy status to other antibiotic agents; Z79.899 Other long term (current) drug therapy
CPT/HCPCS: 31237; 31257; 31267; 31276; 61782; J0171; J1030; J1100; J2001; J2405; J2704; J3010; J3301